=== PATIENT | male | born 1955 | race Caucasian/White ===

== ENCOUNTER 2024-02-15 06:38 | Day surgery (SDC) | payer MEDICARE ==
[~2024-02-15] VITALS: Ht 175.3 cm; Wt 145.9 kg
[~2024-02-15 06:38] MED LIST: ASPI325 PO; ATOR80 PO; CLOP75 PO; Carvedilol12.5 MG PO; ISODIN20; LOSA25 PO; Lactated Ringer's 1,000 ML IV SCH; METF500 PO; METO25ER PO; NS 500 ML IV SCH
[2024-02-15] MEDS ORDERED: ROSUVASTATIN CA20 MG PO (06:53)
[2024-02-15 07:36] VITALS: BP 122/73
--- NOTE | 2024-02-15 07:47 | NUR ---
History, Chart, Medications and Allergies reviewed before start of procedure. Pre-Op teaching done. Pt verbalizes understanding. Patient states colon prep results LT YELLOW.
[2024-02-15] MEDS ORDERED: propofoL 60 ML IV ONE (07:54)
--- NOTE | 2024-02-15 08:10 | NUR ---
02/15/24 [address] COLEY; SEE ANESTHESIA RECORDS.
[2024-02-15 08:37] VITALS: BP 131/79
--- NOTE | 2024-02-15 08:53 | NUR ---
Discharge instructions reviewed with patient. Patient verbalizes understanding. Copy given to patient to take home. Patient States Post-Procedure ride home has been arranged. Discharged via wheelchair to private car for ride home.
== END 2024-02-15 08:55 | disposition home or self-care (01) ==
LOC: ORSCMMR 06:38 → ORD 08:00 → ORSCMMR 08:55
PROVIDERS: Internal Medicine Gastroenterology
PROC: 0DBN8ZX Excision of Sigmoid Colon, Via Natural or Artificial Opening Endoscopic, Diagnostic (ICD-10-PCS; principal; 2024-02-15 08:00)
DX: Z12.11 Encounter for screening for malignant neoplasm of colon (principal); K63.5 Polyp of colon; K57.30 Diverticulosis of large intestine without perforation or abscess without bleeding; G47.33 Obstructive sleep apnea (adult) (pediatric); E66.01 Morbid (severe) obesity due to excess calories; Z68.42 Body mass index [BMI] 45.0-49.9, adult; I10 Essential (primary) hypertension; I25.2 Old myocardial infarction; I25.10 Atherosclerotic heart disease of native coronary artery without angina pectoris; E78.5 Hyperlipidemia, unspecified; E11.9 Type 2 diabetes mellitus without complications; Z79.84 Long term (current) use of oral hypoglycemic drugs; Z79.899 Other long term (current) drug therapy; Z79.82 Long term (current) use of aspirin
CPT/HCPCS: 82947; 88305; J2704; J7040

== ENCOUNTER → 2025-02-01 | Outpatient (CLI) | payer MEDICARE ==
[~2025-02-01] MED LIST changes: +AMOCLA875 PO; +CARVEDILOL6.25 MG PO; +CLIN150 PO; +ISOSORBIDE MONO30 MG PO; -Lactated Ringer's 1,000 ML IV SCH; +METFORMIN HCL500 M3 PO; -NS 500 ML IV SCH; +OXYC5 PO; +PANTOPRAZOLE SO40 M2 PO; +ROSUVASTATIN CA20 MG PO; +VISBIOME 112.51 EACH PO; +[UNRECOGNIZED DRUG - CODE] PO
[2025-02-01 16:24] LABS: C DIFFICILE DNA POSITIVE (Negative)
[2025-02-06 14:46] LABS: CALPROTECTIN,FECAL 30 ug/g (<=49)
[2025-02-07 13:23] LABS: OVA AND PARASITE,FECAL INTERP Negative (Negative)
== END ==
LOC: LAB 10:20 → LAB SHORT 10:20
PROVIDERS: Family Medicine
DX: K52.9 Noninfective gastroenteritis and colitis, unspecified (principal)
CPT/HCPCS: 83993; 87015; 87045; 87046; 87205; 87324; 87493; 87899